=== PATIENT | male | born 1950 | race Hispanic/Latino ===

== ENCOUNTER 2022-04-04 11:17 | Observation (INO) | payer MEDICARE ==
[~2022-04-04] VITALS: Ht 165.1 cm; Wt 65.8 kg
[2022-04-04] MEDS ORDERED: SODIUM CHLORIDE 0.9% 250ML 250 ML IV ONE (11:45)
[2022-04-04 12:25] LABS: BASOPHILS % 0.3 % (0.0-1.0); EOSINOPHILS # (AUTO) 0.1 (0.0-0.4); EOSINOPHILS % 1.9 % (0.0-6.0); LYMPHOCYTES # (AUTO) 1.4 (1.0-3.2); LYMPHOCYTES % 22.9 % (18.0-39.1); MEAN CORPUSCULAR HGB CONC 26.4 g/dL (31-35); MEAN CORPUSCULAR VOLUME 83.4 fL (81-99); MONOCYTES # (AUTO) 0.6 (0.2-0.8); MONOCYTES % 10.3 % (4.4-11.3); NEUTROPHILS % 64.3 % (38.7-80.0); PLATELET COUNT 286 x10e3/uL (140-360); RED BLOOD COUNT 2.41 x10e6/uL (4.3-5.7); RED CELL DISTRIBUTION WIDTH 17.8 % (11.7-14.4)
[2022-04-04 12:29] LABS: HEMATOCRIT 20.1 % (38.2-49.6); HEMOGLOBIN 5.3 g/dL (14.0-18.0)
[2022-04-04 12:38] LABS: PROTHROMBIN TIME 14.1 seconds (11.9-14.5)
[2022-04-04 12:39] LABS: PARTIAL THROMBOPLASTIN TIME 31.9 seconds (23.8-35.5)
[2022-04-04 12:47] LABS: ALBUMIN 2.5 g/dL (3.5-5.0); ALBUMIN/GLOBULIN RATIO 0.6 (0.8-2.0); ANION GAP 15.7 mmol/L (8-16); CALCIUM 8.5 mg/dL (8.4-10.2); CREATININE, SERUM 1.05 mg/dL (0.72-1.25)
[2022-04-04 12:48] LABS: CREATINE KINASE MB 1.3 ng/mL (0-5.0)
[2022-04-04 12:55] LABS: POTASSIUM 5.7 mmol/L (3.5-5.1)
[2022-04-04 15:43] VITALS: BP 152/55
[2022-04-04 15:58] LABS: % IRON SATURATION 4 % (15-50); IRON 16 ug/dL (65-175); TOTAL IRON BINDING CAPACITY 442 ug/dL (261-478); TRANSFERRIN 316 mg/dL (174-364)
[2022-04-04] MEDS ORDERED: SODIUM CHLORIDE 0.9% 250ML 250 ML ONE ×2 (16:00→23:08)
[2022-04-04 17:07] VITALS: BP 152/55
[2022-04-04 17:12] VITALS: BP 152/55
[2022-04-04] MEDS ORDERED: ONDANSETRON HCL INJ 2MG/ML 2ML 2 MG/ML VIAL IV PRN (17:45)
[2022-04-04] MEDS ORDERED: ACETAMINOPHEN 325 MG TAB PO PRN (17:45)
[2022-04-04] MEDS ORDERED: CLONIDINE HCL 0.1 MG TAB PO PRN (18:00)
[2022-04-04] MEDS ORDERED: LANTUS 3ML100 UNITS/ SQ (18:22)
[2022-04-04] MEDS ORDERED: FERROUS SULFAT325 MG PO (18:22)
[2022-04-04] MEDS ORDERED: METFORMIN HCL850 MG PO (18:22)
[2022-04-04] MEDS ORDERED: URSO250 MG PO (18:22)
[2022-04-04] MEDS ORDERED: PANTOPRAZOLE SO40 MG PO (18:22)
[2022-04-04] MEDS ORDERED: MICARDIS20 MG PO (18:22)
[2022-04-04] MEDS ORDERED: SPIRONOLACTONE25 MG PO (18:22)
[2022-04-04] MEDS: DOCUSATE SODIUM 100 MG CAP PO SCH (18:25)
[2022-04-04] MEDS ORDERED: IRON SUCROSE 100 MG in SODIUM CHLORIDE 0.9% 100 ML 100 ML IV SCH (18:30)
[2022-04-04 20:00] VITALS: BP 168/70
[2022-04-04 21:25] VITALS: BP 168/70
[2022-04-04] MEDS ORDERED: SODIUM CHLORIDE 0.9% 1000ML 1,000 ML ONE ×2 (23:07→23:09)
[2022-04-05] VITALS: BP 158/61
[2022-04-05 06:13] LABS: BASOPHILS % 0.5 % (0.0-1.0); EOSINOPHILS # (AUTO) 0.2 (0.0-0.4); EOSINOPHILS % 3.7 % (0.0-6.0); HEMATOCRIT 28.8 % (38.2-49.6); HEMOGLOBIN 8.6 g/dL (14.0-18.0); LYMPHOCYTES # (AUTO) 1.1 (1.0-3.2); LYMPHOCYTES % 17.1 % (18.0-39.1); MEAN CORPUSCULAR HEMOGLOBIN 24.9 pg (28-32); MEAN CORPUSCULAR HGB CONC 29.9 g/dL (31-35); MEAN CORPUSCULAR VOLUME 83.5 fL (81-99); MONOCYTES # (AUTO) 0.7 (0.2-0.8); MONOCYTES % 10.3 % (4.4-11.3); NEUTROPHILS # (AUTO) 4.4 (2.1-6.9); NEUTROPHILS % 68.1 % (38.7-80.0); PLATELET COUNT 275 x10e3/uL (140-360); RED BLOOD COUNT 3.45 x10e6/uL (4.3-5.7); RED CELL DISTRIBUTION WIDTH 16.5 % (11.7-14.4)
[2022-04-05 06:39] LABS: ANION GAP 11.9 mmol/L (8-16); CALCIUM 8.4 mg/dL (8.4-10.2); CREATININE, SERUM 0.78 mg/dL (0.72-1.25); POTASSIUM 4.9 mmol/L (3.5-5.1)
[2022-04-05 08:18] VITALS: BP 161/70
[2022-04-05] MEDS: DOCUSATE SODIUM 100 MG CAP PO SCH (08:35)
[2022-04-05 09:38] VITALS: BP 161/70
[2022-04-05 10:48] VITALS: BP 156/68
[2022-04-05] MEDS ORDERED: ONDANSETRON HCL 4 MG ORAL DISINTEGRATING TAB PO PRN (15:00)
[2022-04-05 15:18] VITALS: BP 156/62
== END 2022-04-05 16:00 | disposition home or self-care (01) ==
LOC: ER 11:21 → INTOOBSV 12:06 → ERHOLD 12:06 → MED/SURG 14:50
PROVIDERS: ADMIT Internal Medicine; ATTEND Internal Medicine
DX: D62 Acute posthemorrhagic anemia (principal); K31.819 Angiodysplasia of stomach and duodenum without bleeding; K70.30 Alcoholic cirrhosis of liver without ascites; F10.20 Alcohol dependence, uncomplicated; I10 Essential (primary) hypertension; E11.9 Type 2 diabetes mellitus without complications; N17.9 Acute kidney failure, unspecified; E87.5 Hyperkalemia; Z79.4 Long term (current) use of insulin; Z79.84 Long term (current) use of oral hypoglycemic drugs; Z20.822 Contact with and (suspected) exposure to COVID-19
CPT/HCPCS: 36415 ×2; 36430; 80048; 80053; 82550; 82553; 82948 ×2; 83540; 84132; 84466; 84484; 85014; 85025 ×2; 85610; 85730; 86850; 86900; 86920; 93005; 99284; G0378 ×2; J1756 ×2; J7030; J7050; P9016; U0002